=== PATIENT | male | born 1970 | race Caucasian/White ===

== ENCOUNTER 2022-12-11 08:57 | Outpatient (CLI) | payer BC, SELFPAY ==
[2022-12-11 13:01] LABS: Chloride* 103 mmol/L (96-114); Potassium* 5.1 mmol/L (3.6-5.1); Sodium* 140 mmol/L (135-149)
[2022-12-11 13:03] LABS: Cholesterol* 178 mg/dL (90-199)
[2022-12-11 13:04] LABS: Blood Urea Nitrogen* 17 mg/dL (7-30); Carbon Dioxide* 29 mmol/L (20-32); Creatinine* 1.1 mg/dL (0.5-1.5); Estimated Glomerular Filt Rate 80 ml/min; Glucose* 118 mg/dL (60-115)
[2022-12-11 13:05] LABS: Calcium* 9.3 mg/dL (8.4-10.6); HDL Cholesterol* 47 mg/dL (>=40); LDL Cholesterol Calculated 108 mg/dL (<100); Triglycerides* 116 mg/dL (40-149)
== END 2022-12-11 08:58 | disposition home or self-care (01) ==
PROVIDERS: Visit Provider Family Medicine
DX: I10 Essential (primary) hypertension (principal); E78.5 Hyperlipidemia, unspecified
CPT/HCPCS: 80048; 80061

== ENCOUNTER 2022-12-22 09:20 | Outpatient (CLI) | payer BC, SELFPAY ==
--- NOTE | 2022-12-22 10:16 | W.ANESCHARGE ---
Anesthesia Charges Start Date/Time Anesthesia Start Date: 12/22/22 Anesthesia Start Time: 09:45 Stop Date/Time Anesthesia Stop Date: 12/22/22 Anesthesia Stop Time: 10:10
--- NOTE | 2022-12-22 10:23 | W.ANESCHARGE ---
Anesthesia Charges Start Date/Time Anesthesia Start Date: 12/22/22 Anesthesia Start Time: 09:45 Stop Date/Time Anesthesia Stop Date: 12/22/22 Anesthesia Stop Time: 10:10
== END 2022-12-22 09:21 | disposition home or self-care (01) ==
LOC: OP CLINIC 09:21
PROVIDERS: PCP Family Medicine; Visit Provider Internal Medicine
DX: Z86.010 Personal history of colon polyps (principal)
CPT/HCPCS: 00812; 45378; J2704